=== PATIENT | female | born 1985 | race Caucasian/White ===

== ENCOUNTER 2023-03-30 16:03 | Inpatient (IN) | payer BC ==
[~2023-03-30] VITALS: Ht 170.2 cm; Wt 96.5 kg
[2023-03-30] MEDS ORDERED: LEVETIRACETAM (500MG) 1,000 MG in IV NS 0.9% 100 ML IV STA (16:07)
[2023-03-30] MEDS ORDERED: MIDAZOLAM HCL 5 MG/5ML VIAL ONE (16:27)
[2023-03-30] MEDS ORDERED: IV NS 0.9% 1,000 ML BAG IV ONE (16:30)
[2023-03-30] MEDS ORDERED: ONDANSETRON HCL/PF 4 MG/2 ML VIAL IVP ONE (16:30)
[2023-03-30] MEDS ORDERED: MIDAZOLAM HCL 2 MG/2ML VIAL IV ONE (16:30)
[2023-03-30] MEDS ORDERED: LORAZEPAM INJ 2 MG/ML VIAL IVP ONE (16:30)
[2023-03-30] MEDS ORDERED: LORAZEPAM INJ 2 MG/ML VIAL ONE (16:31)
[2023-03-30] MEDS ORDERED: ONDANSETRON HCL/PF 4 MG/2 ML VIAL ONE (16:36)
[2023-03-30 16:37] LABS: BASOPHILS # (AUTO) 0.1 K/uL (0.0-0.2); BASOPHILS % (AUTO) 0.6 % (0.0-2.0); EOSINOPHILS % (AUTO) 3.9 % (0.0-6.0); HEMATOCRIT 39 % (33-45); HEMOGLOBIN 12.9 g/dL (11.5-14.8); LYMPHOCYTES # (AUTO) 3.7 K/uL (0.8-4.8); LYMPHOCYTES % (AUTO) 34.5 % (20.0-44.0); MEAN CORPUSCULAR HGB CONC 33 g/dl (31.0-36.0); MEAN CORPUSCULAR VOLUME 95 fL (82-100); MONOCYTES # (AUTO) 0.8 K/uL (0.1-1.30); MONOCYTES % (AUTO) 7.5 % (2.0-12.0); NEUTROPHILS # (AUTO) 5.7 K/uL (1.8-8.9); NEUTROPHILS % (AUTO) 53.5 % (43.0-81.0); PLATELET COUNT (AUTO) 269 K/uL (150-450); RED BLOOD CELL COUNT(AUTO) 4.11 MIL/uL (4.0-5.2); WHITE BLOOD COUNT (AUTO) 10.6 K/uL (4.3-11.0)
[2023-03-30] MEDS ORDERED: CLON0.1T PO (16:42)
[2023-03-30] MEDS ORDERED: BUSP15TA3 PO (16:42)
[2023-03-30] MEDS ORDERED: LEVE500T20 PO (16:42)
[2023-03-30] MEDS ORDERED: METH750T3 PO (16:42)
[2023-03-30] MEDS ORDERED: TOPI50TA24 PO (16:42)
[2023-03-30] MEDS ORDERED: VALA500T40 PO (16:42)
[2023-03-30] MEDS ORDERED: BUPR8TAB4 SL (16:42)
[2023-03-30] MEDS ORDERED: TRAZ150T75 PO (16:42)
[2023-03-30] MEDS ORDERED: ONDA4TAB5 PO (16:42)
[2023-03-30] MEDS ORDERED: BUPR-54 PO (16:42)
[2023-03-30] MEDS ORDERED: PREG200C PO (16:42)
[2023-03-30] MEDS ORDERED: LITH300C2 PO (16:42)
[2023-03-30] MEDS ORDERED: HYDR50CA5 PO (16:42)
[2023-03-30] MEDS ORDERED: PRAZ1CAP5 PO (16:42)
[2023-03-30 16:45] LABS: CALCIUM, SERUM 9.7 mg/dL (8.5-10.1); CARBON DIOXIDE 30 mmol/L (21-32); CHLORIDE 106 mmol/L (98-107); CREATININE 1.1 mg/dL (0.6-1.3); GLUCOSE 79 mg/dL (74-106); POTASSIUM 3.8 mmol/L (3.5-5.1); SODIUM SERUM 141 mmol/L (136-145); UREA NITROGEN, BLOOD 13 mg/dL (7-18)
[2023-03-30 16:51] LABS: ALANINE AMINOTRANSFERASE 99 U/L (12-78); ALBUMIN 4.4 g/dL (3.4-5.0); ALKALINE PHOSPHATASE 247 U/L (46-116); ASPARTATE AMINOTRANSFERASE 21 U/L (15-37); BILIRUBIN,DIRECT 0.1 mg/dL (0.0-0.2); BILIRUBIN,TOTAL 0.3 mg/dL (0.2-1.0); TOTAL PROTEIN, SERUM 8.1 g/dL (6.4-8.2)
[2023-03-30 16:54] LABS: ALCOHOL, BLOOD < 3 mg/dL (0-0)
--- NOTE | 2023-03-30 16:54 | NUR ---
Active Seizures on and off, patient able to provide her own history. Speaking with MD, seizure precautions implemented. All safety precautions taken, patient on monitor.
--- NOTE | 2023-03-30 17:13 | NUR ---
URINE SAMPLE SENT TO LAB
--- NOTE | 2023-03-30 17:15 | NUR ---
COVID SWAB SENT TO LAB
[2023-03-30] MEDS ORDERED: CHLORDIAZEPOXIDE HCL 25 MG CAPSULE ONE (17:26)
[2023-03-30] MEDS ORDERED: CHLORDIAZEPOXIDE HCL 25 MG CAPSULE PO ONE (17:30)
--- NOTE | 2023-03-30 18:09 | NUR ---
Patient sleeping, easily aroused. AOx4, agrees with plan of care, states she wants to feel better.
--- NOTE | 2023-03-30 19:15 | NUR ---
Pt is noted in bed sleepingand responsive as report is received from the off going nurse, that , Pt was brought in from [facility] due to Seizure X2 Lasting 2mintes and also another Additional Sezures upon arrival and she has been medicated as ordered. Pt care continue as she is pendding admission while moniot closely.
[2023-03-30] MEDS ORDERED: CLONIDINE HCL 0.1 MG TABLET PO PRN (19:30)
[2023-03-30] MEDS ORDERED: LORAZEPAM INJ 2 MG/ML VIAL IV PRN (19:30)
[2023-03-30] MEDS ORDERED: METHOCARBAMOL (750MG) 750 MG TABLET PO PRN (19:30)
[2023-03-30] MEDS ORDERED: ACETAMINOPHEN 325 MG TABLET PO PRN (19:30)
[2023-03-30] MEDS ORDERED: ONDANSETRON HCL/PF 4 MG/2 ML VIAL IVP PRN (19:30)
--- NOTE | 2023-03-30 20:50 | NUR ---
Pt care continue as report is given to 3rd Floor ALYSON Borges as Pt is been Admitted to Tele under DR. Devi. Pt care continue.
[2023-03-30 21:00] VITALS: BP 80/48
--- NOTE | 2023-03-30 21:12 | NUR ---
Pt is noted off the unit , stable as she is been admitted to 3rd Floor Room 311-2. Pt care continue.
--- NOTE | 2023-03-30 21:30 | NUR ---
RESERVOIR ENGINEERBRUSH SANDER NOTE PATIENT ARRIVED ON UNIT, PT VERY LETHARGIC, AWAKENED TO TOUCH AND LIGHT PAIN STIMULI, ONCE AWAKE PATIENT ALERT/ORIENTED X 1-2, POOR HISTORIAN D/T LETHARGY. PATIENT STABLE ON 2 LPM OF O2 VIA NASAL CANNULA, NO S/S OF DISTRESS OR SOB NOTED, BREATHING EVEN AND UNLABORED. PATIENT STATES SHE LIVES IN REHAB, HAS NO FAMILY. PATIENT STATING SHE WANTS TO GO BACK TO REHAB. PATIENT STATES SHE DRINKS ALCOHOL AND USES OPIATES AND BENZOS, CAN'T REMEMBER LAST TIME SHE USED ANY. PATIENT REPORTS HX OF SEIZURES. PATIENT UNABLE TO STATE IF SHE'S VACCINATED FOR FLU OR COVID. IV ACCESS ON LAC #20G INTACT AND FLUSHING WELL. PATIENT PLACED ON TELE MONITOR, READING SINUS RHYTHM, HR: 74. ALL BELONGINGS DOCUMENT AND SHEET PLACED IN CHART. SAFETY AND SEIZURE PRECAUTIONS IN PLACE: BED LOCKED IN LOWEST POSITION, HOB ELEVATED, SIDE RAILS UP X 3, BED ALARM ON. WILL CONTINUE TO MONITOR PATIENT
[2023-03-30] MEDS: IV NS 0.9% 1,000 ML IV SCH (21:40)
--- NOTE | 2023-03-30 21:45 | NUR ---
CHARGE ACCOUNT AUTHORIZER NOTE DR. JASPREET GUSTAFSON PRESENT ON FLOOR ASSESSING PATIENT. PATIENT'S BP 80/48, HR: 60. NOTIFIED MD WITH ORDER FOR 1000 ML BOLUS AND MAINTENANCE AFTERWARD IVF @ 125 ML/HR. KEEP NPO FOR NOW SINCE PATIENT IS LETHARTIC AND ORDER SWALLOW EVAL
[2023-03-30] MEDS: ENOXAPARIN SODIUM 40 MG/0.4 ML DISP.SYRIN SQ SCH (21:47)
--- NOTE | 2023-03-30 21:50 | NUR ---
MANAGER WATER NOTE PATIENT HAVING WHAT APPEARS LIKE A SEIZURE LASTING ABOUT 20 SECONDS. VITAL SIGNS WNL. WILL CONTINUE TO MONITOR PATIENT
[2023-03-30] MEDS ORDERED: IV NS 0.9% 1,000 ML IV ONE (22:00)
[2023-03-31] VITALS: BP 109/54
--- NOTE | 2023-03-31 | NUR ---
MANAGER CARE NOTE PATIENT'S BP 89/54, PER DR. VOGEL GIVE ANOTHER 1000 ML BOLUS
[2023-03-31] MEDS ORDERED: IV NS 0.9% 1,000 ML IV ONE (00:30)
[2023-03-31] MEDS: IV NS 0.9% 1,000 ML IV SCH (04:27)
[2023-03-31 05:19] VITALS: BP 94/69
--- NOTE | 2023-03-31 05:58 | NUR ---
COMPLAINT ANALYST NOTE PATIENT OBSERVED HAVING SEIZURE LASTING ABOUT 1.5 MINUTES. VITAL SIGNS TAKEN AND WNL. WILL ADMINISTER ATIVAN
--- NOTE | 2023-03-31 06:12 | NUR ---
DEBONER NOTE PATIENT REMOVED IV AND NASAL CANNULA, PATIENT REFUSING LAB DRAW, IV REINSERTION AND NASAL CANNULA. EXPLAINED RISKS AND BENEFITS BUT PATIENT STATED "I DON'T CARE! DON'T TOUCH ME! I JUST WANT TO CALL MY MOM!"
--- NOTE | 2023-03-31 06:45 | NUR ---
CASHIERS BUSSERS FOOD RUNNERS NOTE PATIENT WITNESSED HAVING SEIZURE ON AND OFF FOR 5 MINUTES BY ALYSON TORRES
--- NOTE | 2023-03-31 07:01 | NUR ---
GELATIN DYNAMITE PACKING OPERATOR NOTE ATTEMPTED TO INSERT IV BUT UNSUCCESSFUL. PER DR. VOGEL GIVE ATIVAN IM. ATIVAN 2 MG IM GIVEN ORDERED. PATIENT REMOVED TELE MONITOR AND NASAL CANNULA, REFUSING TO HAVE IT PLACED BACK ON, YELLING "DON'T TOUCH ME, I WANT TO LEAVE!"
--- NOTE | 2023-03-31 07:45 | NUR ---
DEVELOPMENT ENGINEER CLOSING NOTE PATIENT AWAKE IN ROOM, ALERT/ORIENTED X 2. PATIENT REFUSING O2 VIA NASAL CANNULA, PATIENT REFUSING TELE MONITOR, PT REFUSING IV REINSERTION. PATIENT AGITATED AND RESTLESS, PT CONTINUOUSLY GETTING OUT OF BED AND THREATENING TO LEAVE, RISK OF FALL EXPLAINED TO PATIENT BUT PATIENT YELLED "I DON'T CARE! I'M LEAVING! WATCH ME!" CORRECTION OFFICER [place] [employer] NOTIFIED AND SPOKE TO PATIENT, EXPLAINED SHE'S UNSTABLE FOR DISCHARGE BUT PATIENT CONTINUES TO STATE SHE'S LEAVING, SECURITY CALLED. CALLED PATIENT'S MOTHER TEODORO WHO STATED PATIENT ACTS LIKE THIS WHEN HER MEDICATIONS GET CHANGED, MOTHER IS AT WORK AND UNABLE TO COME, STATED TO CALL DAWNA WHO WORKS AT REHAB PATIENT WAS AT, ENDORSED TO DAYSHIFT RN.
--- NOTE | 2023-03-31 07:50 | NUR ---
SUPPLY CHAIN DEVELOPMENT MANAGER OPENING NOTES RECEIVED PATIENT AWAKE IN ROOM, A/O X 2. VERBALIZING "I WANT TO GO BACK IN REHAB". PATIENT IS AGITATED AND RESTLESS, AND CONTINUOUSLY TRYING TO GO OUT OF THE ROOM. SHE SAID "I WANT TO LEAVE" AND "I DON'T CARE, DON'T TOUCH ME, I'M LEAVING, WATCH ME!' SECURITY WAS CALLED. PATIENT REFUSED TELE MONITORING. PATIENT REFUSED IV REINSERTION. PATIENT REFUSE O2 INHALATION. CHARGE NURSE WAS MADE AWARE AND TALKED TO THE PATIENT. WILL CONTINUE TO MONITOR.
[2023-03-31 08:13] VITALS: BP 112/84
[2023-03-31] MEDS: busPIRone 5 MG TABLET PO SCH ×3 (08:39→16:43)
[2023-03-31] MEDS: LITHIUM CARBONATE (300 MG CAP) 300 MG CAPSULE PO SCH ×4 (08:39→17:00)
[2023-03-31] MEDS: PREGABALIN 100 MG CAPSULE PO SCH ×3 (08:39→16:43)
[2023-03-31] MEDS: CHLORDIAZEPOXIDE HCL 25 MG CAPSULE PO SCH ×3 (08:39→16:44)
[2023-03-31] MEDS ORDERED: BUPROPION XL 150 MG TAB.ER.24 PO SCH (09:00)
[2023-03-31] MEDS ORDERED: BUPRENORPHINE HCL 8 MG TAB.SUBL SL SCH (09:00)
--- NOTE | 2023-03-31 09:05 | NUR ---
POLICE DISPATCHER NOTE RECEIVED A CALL FROM OLINDA OF [facility]. HE STATED THAT THE PATIENT WAS RESIDENT OF THEM AND THEY BROUGHT THE PATIENT TO THE HOSPITAL BECAUSE PATIENT HAS EPISODES OF SEIZURE. OLINDA ALSO INFORMED ME THAT WE CAN REACH THEM AT [phone] IF WE NEED ANY INFO ABOUT THE PATIENT.
--- NOTE | 2023-03-31 09:35 | NUR ---
RETAIL SALESWORKER NOTE. PATIENT STATED SHE WAS A HARD STICK AND PREFERS MIDLINE IV. MIDLINE IV INSERTION DONE BY DR. ROGERS.
[2023-03-31] MEDS ORDERED: IV NS 0.9% 1,000 ML IV PRN (09:39)
[2023-03-31] MEDS: LORAZEPAM INJ 2 MG/ML VIAL IM STA ×2 (09:58→10:17)
[2023-03-31] MEDS: LEVETIRACETAM (500MG) 1,000 MG in IV NS 0.9% 100 ML IV SCH ×2 (10:05→16:43)
[2023-03-31] MEDS: LORAZEPAM INJ 2 MG/ML VIAL IM/IV PRN (10:20)
--- NOTE | 2023-03-31 10:20 | NUR ---
SYSTEMS ADMIN NOTE ATIVAN 2MG WAS GIVEN PRN FOR RESTLESS AND AGITATION. WILL CONTINUE TO MONITOR
--- NOTE | 2023-03-31 14:02 | NUR ---
SW Consult: SW consult requested for patient for substance abuse. Pt brought to the hospital for seizures. Patient appeared to be alert and oriented x2 (self,place). Pt was unable to have a proper conversation and her speech was slow. Patient was unable to maintain eye contact and her eyes were closed. Patient stated she was brought to the hospital due to wanting to detox. She shared with this web content writer that she has been abusing drugs for years and stated she has been using opiates. Patient stated that she has a mother Trisha ([phone]) involved. She would want to dc to a rehab center. She denied suicidal or homicidal. She denied visual/auditory hallucinations. SW offered pt resources of substance abuse referrals. DC PLAN: [facility] [address] [facility], [phone] , per CM. Substance Abuse resources provided included: [facility] Substance Abuse Self-Helpline ([facility]) ; [facility] [address] [facility] [place] [id number] ; [facility] [address] [facility] [address] ; [facility] [address] [facility] [phone] ; [facility] [address] [facility] [phone] ; [facility] [address] [facility] [phone] ; [facility] [address] [facility] [phone] ; [facility] Substance Abuse Helpline([facility] ; [facility] ; [facility] [place]; [facility]; [facility] [place]; [facility] [place]; [facility] Malikajagr[facility]; [facility] Mas[facility]; [facility]. [facility] [place]; Alcoholics Anonymous -[facility]; [place] ; Marijuana Anonymous [facility]; Narcotics Anonymous [email or web address].na.[email or web address];
[2023-03-31 16:30] VITALS: BP 123/70
[2023-03-31] MEDS: ESCITALOPRAM OXALATE (10 MG) 10 MG TABLET PO SCH (17:26)
--- NOTE | 2023-03-31 19:31 | NUR ---
RN CLOSING NOTE PATIENT IS AWAKE IN BED, A/OX 1-2, WITH 1;1 SITTER. PATIENT HAS NO SIGNS OF ACUTE DISTRESS AT THIS TIME. PATIENT REFUSED O2 INHALATION, NO SOB, PATIENT IS BREATHING EVEN AND UNLABORED. PATIENT REFUSED TELE MONITORING. WITH JACQUELINE MIDLINE #18G-SL, INTACT, PATENT, FLUSHING WELL. PATIENT DENIES ANY PAIN AT THIS TIME. FREQUENT REORIENTATION DONE BECAUSE PATIENT KEEPS ON SAYING THAT SHE WANT TO BACK TO THE REHAB FACILITY. SAFETY MEASURES PUT IN PLACED. BED IN LOW AND LOCKED POSITION. CALL LIGHT WITHIN EASY REACH. WILL ENDORSE TO ARMOR RECONNAISSANCE VEHICLE CREWMAN NURSE FOR CONTINUITY OF CARE. Addendum: 03/31/23 at 1938 by NENO ROMERO RN ALL DUE MEDS GIVEN. ALL NURSING NEEDS ATTENDED.
--- NOTE | 2023-03-31 19:35 | NUR ---
RN OPENING NOTE RECEIVED PATIENT IN BED; AWAKE, ALERT AND ORIENTED X 1-2. REFUSED TO HAVE O2 INHALATION. SPO2 OF 96%. PATIENT REFUSED TO BE HOOKED ON TELE BOX. NO S/SX OF ANY PAIN OR DISCOMFORT NOTED AT THIS TIME. WITH 1:1 SITTER @ BEDSIDE. WITH RIGHT UPPER ARM MIDLINE 18g; PATENT, INTACT AND SALINE LOCKED. PATIENT VERBALIZED "I WANNA GO BACK TO REHAB." FALL, SAFETY AND SEIZURE PRECAUTIONS IMPLEMENTED: PADDED SIDE RAILS, CALL LIGHT AND TABLE WITHIN REACH, SIDE RAILS UP X 3, BED IN LOWEST LOCKED POSITION. WILL CONTINUE TO MONITOR THROUGHOUT SHIFT.
[2023-03-31] MEDS: ENOXAPARIN SODIUM 40 MG/0.4 ML DISP.SYRIN SQ SCH (20:27)
[2023-04-01] MEDS: LORAZEPAM INJ 2 MG/ML VIAL IM/IV PRN (05:07)
--- NOTE | 2023-04-01 05:07 | NUR ---
RN NOTE PATIENT HAD SEIZURE EPISODE. PRN ATIVAN 2MG IV GIVEN ORDERED. WILL CONTINUE TO MONITOR
--- NOTE | 2023-04-01 07:04 | NUR ---
RN CLOSING NOTE PATIENT IN BED; AWAKE, A/O X 1-2. REFUSED TO HAVE O2 INHALATION. IN NO ACUTE DISTRESS. NO S/SX OF ANY PAIN OR DISCOMFORT NOTED AT THIS TIME. WITH 1:1 SITTER @ BEDSIDE. WITH RIGHT UPPER ARM MIDLINE 18g; PATENT, INTACT AND SALINE LOCKED. FALL, SAFETY AND SEIZURE PRECAUTIONS MAINTAINED: PADDED SIDE RAILS, CALL LIGHT AND TABLE WITHIN REACH, SIDE RAILS UP X 3, BED IN LOWEST LOCKED POSITION. ENDORSED TO MORNING SHIFT FOR CONTINUITY OF CARE.
[2023-04-01 07:23] LABS: BASOPHILS # (AUTO) 0.1 K/uL (0.0-0.2); EOSINOPHILS % (AUTO) 5.3 % (0.0-6.0); HEMATOCRIT 36 % (33-45); HEMOGLOBIN 11.5 g/dL (11.5-14.8); LYMPHOCYTES # (AUTO) 2.6 K/uL (0.8-4.8); LYMPHOCYTES % (AUTO) 44.2 % (20.0-44.0); MEAN CORPUSCULAR HGB CONC 32 g/dl (31.0-36.0); MEAN CORPUSCULAR VOLUME 98 fL (82-100); MONOCYTES # (AUTO) 0.5 K/uL (0.1-1.30); MONOCYTES % (AUTO) 8.4 % (2.0-12.0); NEUTROPHILS # (AUTO) 2.4 K/uL (1.8-8.9); NEUTROPHILS % (AUTO) 41.1 % (43.0-81.0); PLATELET COUNT (AUTO) 255 K/uL (150-450); WHITE BLOOD COUNT (AUTO) 5.8 K/uL (4.3-11.0)
--- NOTE | 2023-04-01 07:23 | NUR ---
RN OPENING NOTE RECEIVED PATIENT IN BED, AWAKE, NO SIGNS OF ACUTE DISTRESS NOTED. ON ROOM AIR, TOLERATING WELL. DENIES ANY PAIN AT THIS TIME. PATIENT NOTED WITH AGITATION AND RESTLESSNESS. STATING THAT SHE WANTS TO GO HOME NOW. REORIENTED NEEDED. SITTER AT BEDSIDE. NOTED WITH IV ACCESS ON RIGHT UPPER ARM MIDLINE. INTACT AND PATENT. IV FLUIDS NOT IN PLACE CURRENTLY BECAUSE OF PATIENT REFUSAL. SAFETY MEASURE IN PLACE. BED IN LOW AND LOCKED POSITION. SIDE RAILS UP X3, CALL LIGHT PLACED WITHIN EASY REACH. SEIZURE PRECAUTION IN PLACE. WILL CONTINUE TO MONITOR PATIENT.
[2023-04-01 07:41] LABS: CALCIUM, SERUM 9.5 mg/dL (8.5-10.1); POTASSIUM 3.9 mmol/L (3.5-5.1)
[2023-04-01] MEDS: LITHIUM CARBONATE (300 MG CAP) 300 MG CAPSULE PO SCH ×2 (09:04→17:24)
[2023-04-01] MEDS: busPIRone 5 MG TABLET PO SCH ×3 (09:04→17:24)
[2023-04-01] MEDS: LEVETIRACETAM (500MG) 1,000 MG in IV NS 0.9% 100 ML IV SCH ×2 (09:05→16:17)
[2023-04-01] MEDS: CHLORDIAZEPOXIDE HCL 25 MG CAPSULE PO SCH ×3 (09:05→17:24)
[2023-04-01] MEDS: PREGABALIN 100 MG CAPSULE PO SCH ×3 (09:05→17:24)
[2023-04-01] MEDS: ESCITALOPRAM OXALATE (10 MG) 10 MG TABLET PO SCH (09:05)
--- NOTE | 2023-04-01 13:14 | NUR ---
RN NOTE TAISHA DEVI NP HERE TO SEE AND EXAMINE PATIENT. PATIENT NOTED WITH AGITATION AND RESTLESSNESS, STILL WANTING TO GO HOME. MOUNA SUMNER GAVE VERBAL ORDER TO ADMINISTER ATIVAN 2MG IVP X1, ORDER CARRIED OUT.
[2023-04-01] MEDS ORDERED: LORAZEPAM INJ 2 MG/ML VIAL IV ONE (13:30)
--- NOTE | 2023-04-01 17:00 | NUR ---
RN NOTE EEG PERFROMED AND COOPERATIVE AT THIS TIME.
--- NOTE | 2023-04-01 18:43 | NUR ---
RN CLOSING NOTE PATIENT IN BED, AWAKE, NO SIGNS OF ACUTE DISTRESS NOTED. REMAINS STABLE ON ROOM AIR, BREATHING EVEN AND UNLABORED. DENIED ANY PAIN THROUGHOUT THE SHIFT. PATIENT STILL NOTED WITH EPISODES OF AGITATION AND RESTLESSNESS. WANTING TO GO HOME. PT WAS ASLEEP MOST OF THE AFTERNOON AND EVENING. REORIENTED NEEDED. SITTER AT BEDSIDE. IV ACCESS ON RIGHT UPPER ARM MIDLINE. INTACT AND PATENT. IV FLUIDS NOT IN PLACE CURRENTLY BECAUSE OF PATIENT REFUSAL. PT CONTINUES TO PULL ON IV LINE. SAFETY MEASURE MAINTED. BED IN LOW AND LOCKED POSITION. SIDE RAILS UP X3, CALL LIGHT PLACED WITHIN EASY REACH. SEIZURE PRECAUTION IN PLACE. WILL ENDORSE TO NIGHTSHIFT FOR LIZBET.
[2023-04-01] MEDS: ENOXAPARIN SODIUM 40 MG/0.4 ML DISP.SYRIN SQ SCH (19:55)
[2023-04-01 20:00] VITALS: BP 99/58
--- NOTE | 2023-04-01 20:00 | NUR ---
RECEIVED PATIENT IN BED, ASLEEP, EASILY AROUSEABLE, STABLE ON ROOM AIR, NO COMPLAIN OF PAIN AT THIS TIME, DX SEIZURE, SITTER AT THE BEDSIDE. PER REPORT, CAN BE RESTLESS AND CONSTANTLY GETTING OUT OF BED. SEIZURE PRECAUTION, FALL PRECAUTION
--- NOTE | 2023-04-01 23:36 | NUR ---
ATTEMPTED TO RECONNECT TO IV, PATIENT REFUSED, KEPT PULLING ON MIDLINE.
[2023-04-02 04:57] VITALS: BP 101/62
[2023-04-02 05:44] LABS: EOSINOPHILS % (AUTO) 5.1 % (0.0-6.0); HEMATOCRIT 37 % (33-45); HEMOGLOBIN 12.3 g/dL (11.5-14.8); LYMPHOCYTES # (AUTO) 3.7 K/uL (0.8-4.8); LYMPHOCYTES % (AUTO) 49.9 % (20.0-44.0); MEAN CORPUSCULAR HGB CONC 33 g/dl (31.0-36.0); MEAN CORPUSCULAR VOLUME 97 fL (82-100); MONOCYTES # (AUTO) 1.1 K/uL (0.1-1.30); MONOCYTES % (AUTO) 15.5 % (2.0-12.0); NEUTROPHILS # (AUTO) 2.2 K/uL (1.8-8.9); NEUTROPHILS % (AUTO) 29.5 % (43.0-81.0); PLATELET COUNT (AUTO) 281 K/uL (150-450); RED BLOOD CELL COUNT(AUTO) 3.86 MIL/uL (4.0-5.2); WHITE BLOOD COUNT (AUTO) 7.4 K/uL (4.3-11.0)
[2023-04-02] MEDS: CHLORDIAZEPOXIDE HCL 25 MG CAPSULE PO SCH (05:51)
[2023-04-02 06:14] LABS: CALCIUM, SERUM 9.7 mg/dL (8.5-10.1); POTASSIUM 4.4 mmol/L (3.5-5.1)
--- NOTE | 2023-04-02 06:55 | NUR ---
DX SEIZURE, ALERT/ORIENTED X1, ROOM AIR, NO COMPLAIN OF PAIN, CONFUSED, RESTLESS, GETTING OUT OF BED OFTEN, CONTINENT OF BOWEL AND BLADDER. SKIN INTACT. REFUSING IVF, SITTER AT THE BEDSIDE, SEIZURE PRECAUTION, FALL PRECAUTION, ATIVAN PRN FOR SEIZURE ONLY, TAPER LIBRIUM, EEG PENDING RESULTS, PER PSYCH, NO PSYCH HOLD.
--- NOTE | 2023-04-02 07:51 | NUR ---
RN OPENING NOTE RECEIVED PATIENT IN BED, AO X 1, CONFUSED, SITTER AT BED SIDE. ABLE TO RESPONDS ALL PHYSICAL STIMULI. RESPIRATORY EVEN AND UNLABORED IN ROOM AIR, IN NO ACUTE RESPIRATORY DISTRESS OBSERVED. SKIN IS WARM TO TOUCH, KEEP CLEAN/DRY. KEPT ELEVATED HOB FOR ASPIRATION PRECAUTION AND ENSURE AIRWAY, ALSO LOWEST BED POSITIONED. BED ALARM IS ON AT ALL TIMES FOR SAFETY. CALL LIGHT WITHIN REACH, WILL CONTINUE TO MONITOR.
[2023-04-02] MEDS: LITHIUM CARBONATE (300 MG CAP) 300 MG CAPSULE PO SCH (08:39)
[2023-04-02] MEDS: busPIRone 5 MG TABLET PO SCH (08:39)
[2023-04-02] MEDS: PREGABALIN 100 MG CAPSULE PO SCH (08:39)
[2023-04-02] MEDS: ESCITALOPRAM OXALATE (10 MG) 10 MG TABLET PO SCH (08:39)
[2023-04-02] MEDS: LEVETIRACETAM (500MG) 1,000 MG in IV NS 0.9% 100 ML IV SCH (10:01)
--- NOTE | 2023-04-02 10:52 | NUR ---
PATIENT STARTING AGITATE; SCREAMING AND ATTEMPTING OUT OF THE BED REPEATEDLY, NEW ORDER ATIVAN 2MG VIA IV PUSH X 1. NOTED AND CARRY OUT.
[2023-04-02] MEDS ORDERED: LORAZEPAM INJ 2 MG/ML VIAL IV ONE (11:00)
[2023-04-02] MEDS ORDERED: LITH300C4 PO (11:42)
[2023-04-02] MEDS ORDERED: PREG100C PO (11:42)
[2023-04-02] MEDS ORDERED: METH750T3 PO (11:42)
[2023-04-02] MEDS ORDERED: LEVE1000 PO (11:42)
[2023-04-02] MEDS ORDERED: ESCI10TA PO (11:42)
[2023-04-02] MEDS ORDERED: BUSP5TAB3 PO (11:42)
--- NOTE | 2023-04-02 13:30 | NUR ---
2 vacuum repairer PICKED UP PATIENT TO THE [facility]. PATIENT IN STABLE CONDITION, SKIN IS WARM TO TOUCH, IN NO ACUTE DISTRESS OBSERVED. REMOVED IV LINE BORE PATIENT LEAVE.
[2023-04-02 15:57] LABS: EOSINOPHILS % (MANUAL) 3 % (0-4); LYMPHOCYTES % (MANUAL) 50 % (16-48); MONOCYTES % (MANUAL) 7 % (0-11.0); NEUTROPHILS % (MANUAL) 40 (42-76)
== END 2023-04-02 13:30 | DRG 100 ==
LOC: ER 16:09 → TELE 20:38
PROVIDERS: ADMIT Internal Medicine; ATTEND Nurse Practitioner Acute Care
PROC: 05HB33Z Insertion of Infusion Device into Right Basilic Vein, Percutaneous Approach (ICD-10-PCS; principal; 2023-03-31)
DX: G40.909 Epilepsy, unspecified, not intractable, without status epilepticus (principal); G92.8 Other toxic encephalopathy; F10.239 Alcohol dependence with withdrawal, unspecified; I95.89 Other hypotension; F11.90 Opioid use, unspecified, uncomplicated; F10.229 Alcohol dependence with intoxication, unspecified; Y90.0 Blood alcohol level of less than 20 mg/100 ml; Z88.5 Allergy status to narcotic agent; Z88.2 Allergy status to sulfonamides; Z88.8 Allergy status to other drugs, medicaments and biological substances; Z79.899 Other long term (current) drug therapy; Z20.822 Contact with and (suspected) exposure to COVID-19; E66.9 Obesity, unspecified; Z68.33 Body mass index [BMI] 33.0-33.9, adult; F31.9 Bipolar disorder, unspecified; R74.01 Elevation of levels of liver transaminase levels; F29 Unspecified psychosis not due to a substance or known physiological condition
CPT/HCPCS: 36415; 70450-TC; 71045-TC; 80048-TC; 80076-TC; 84703-TC; 85025-TC; 85730-TC; 87081-TC; 92526; 92611-TC; 95819-TC; A4223; C9803; G0378; G0480; J1650; J1953; J2060; J2250; J2405; J7030

== ENCOUNTER 2024-10-22 13:47 | Inpatient (IN) | payer BC ==
[~2024-10-22] VITALS: Ht 190.5 cm; Wt 77.1 kg
[~2024-10-22 13:47] MED LIST: BUPR-54 PO; BUPR8TAB4 SL; BUSP15TA3 PO; CLON0.1T PO; HYDR50CA5 PO; LEVE500T20 PO; LITH300C2 PO; METH750T3 PO; ONDA4TAB5 PO; PRAZ1CAP5 PO; PREG200C PO; TOPI50TA24 PO; TRAZ150T75 PO; VALA500T40 PO
[2024-10-22] MEDS: LEVETIRACETAM (500MG) 1,000 MG in IV NS 0.9% 90 ML IV SCH ×2 (14:00→20:31)
[2024-10-22] MEDS: IV NS 0.9% 1,000 ML BAG IV ONE (14:00)
[2024-10-22 14:58] LABS: BASOPHILS % (AUTO) 0.9 % (0.0-2.0); EOSINOPHILS # (AUTO) 0.1 K/uL (0.0-0.7); EOSINOPHILS % (AUTO) 2.2 % (0.0-6.0); HEMATOCRIT 32 % (33-45); HEMOGLOBIN 10.7 g/dL (11.5-14.8); LYMPHOCYTES # (AUTO) 2.6 K/uL (0.8-4.8); LYMPHOCYTES % (AUTO) 52.9 % (20.0-44.0); MEAN CORPUSCULAR HEMOGLOBIN 33 PG (26.0-33.0); MEAN CORPUSCULAR HGB CONC 34 g/dl (31.0-36.0); MEAN CORPUSCULAR VOLUME 98 fL (82-100); MONOCYTES # (AUTO) 0.2 K/uL (0.1-1.30); MONOCYTES % (AUTO) 4.9 % (2.0-12.0); NEUTROPHILS # (AUTO) 1.9 K/uL (1.8-8.9); NEUTROPHILS % (AUTO) 39.1 % (43.0-81.0); PLATELET COUNT (AUTO) 253 K/uL (150-450); RED BLOOD CELL COUNT(AUTO) 3.23 MIL/uL (4.0-5.2); RED CELL DISTRIBUTION WIDTH 14.9 % (11.5-15.0); WHITE BLOOD COUNT (AUTO) 4.8 K/uL (4.3-11.0)
[2024-10-22 15:28] LABS: CALCIUM, SERUM 8.5 mg/dL (8.5-10.1); CARBON DIOXIDE 22 mmol/L (21-32); CHLORIDE 109 mmol/L (98-107); GLUCOSE 113 mg/dL (74-106); POTASSIUM 4.6 mmol/L (3.5-5.1); SODIUM SERUM 140 mmol/L (136-145); UREA NITROGEN, BLOOD 14 mg/dL (7-18)
[2024-10-22 15:30] LABS: ALCOHOL, BLOOD < 3 mg/dL (0-10)
[2024-10-22] MEDS: LORAZEPAM INJ 2 MG/ML VIAL IV ONE (15:35)
[2024-10-22] MEDS ORDERED: LORAZEPAM INJ 2 MG/ML VIAL ONE (15:38)
[2024-10-22 16:37] LABS: BARBITURATE, URINE NEGATIVE (NEGATIVE); BENZODIAZEPINE, URINE POSITIVE (NEGATIVE); CANNABINOID, URINE NEGATIVE (NEGATIVE); COCCAINE, URINE NEGATIVE (NEGATIVE); OPIATE, URINE NEGATIVE (NEGATIVE); PHENCYCLIDINE SCREEN,URINE NEGATIVE (NEGATIVE)
[2024-10-22 16:46] LABS: AMPHETAMINE, URINE NEGATIVE (NEGATIVE)
[2024-10-22] MEDS: LORAZEPAM INJ 2 MG/ML VIAL IV STA (18:10)
[2024-10-22 18:17] VITALS: BP 135/85; TEMP 98.5; O2SAT 99
[2024-10-22] MEDS ORDERED: ONDANSETRON HCL/PF 4 MG/2 ML VIAL IVP PRN (19:00)
[2024-10-22 20:00] VITALS: BP 128/85; TEMP 98.1; O2SAT 98
[2024-10-22] MEDS: IV NS 0.9% 1,000 ML IV PRN (20:08)
[2024-10-22] MEDS: LORAZEPAM INJ 2 MG/ML VIAL IV PRN (20:47)
[2024-10-22] MEDS: ENOXAPARIN SODIUM 40 MG/0.4 ML DISP.SYRIN SQ SCH (21:28)
[2024-10-22] MEDS: CEFEPIME 2 GM in IV D5W 100 ML IV SCH (21:30)
[2024-10-22] MEDS ORDERED: CEFEPIME 1 GM VIAL ONE (21:55)
[2024-10-23] VITALS: BP 106/85; TEMP 97.7; O2SAT 98
[2024-10-23 04:00] VITALS: BP 142/78; TEMP 98.2; O2SAT 98
[2024-10-23] MEDS ORDERED: CEFEPIME 1 GM VIAL ONE (05:29)
[2024-10-23 09:00] VITALS: BP 149/96; TEMP 98.8; O2SAT 100
[2024-10-23] MEDS ORDERED: ONDA4TAB5 PO (09:23)
[2024-10-23] MEDS ORDERED: ATOM100C PO (09:23)
[2024-10-23] MEDS ORDERED: GABA600T12 PO (09:23)
[2024-10-23] MEDS ORDERED: QUET50TA PO (09:23)
[2024-10-23] MEDS ORDERED: TOPI100T PO (09:23)
[2024-10-23] MEDS ORDERED: MELA5TAB PO (09:23)
[2024-10-23] MEDS ORDERED: DESV100T PO (09:23)
[2024-10-23] MEDS ORDERED: MAGN100T PO (09:23)
[2024-10-23] MEDS ORDERED: PRAZ5CAP2 PO (09:23)
[2024-10-23] MEDS: LEVETIRACETAM (500MG) 1,000 MG in PREMIX 90 EA IV ONE (11:01)
[2024-10-23 12:00] VITALS: BP 146/96; TEMP 98.4; O2SAT 100
[2024-10-23 12:19] LABS: BASOPHILS % (AUTO) 0.9 % (0.0-2.0); EOSINOPHILS # (AUTO) 0.1 K/uL (0.0-0.7); EOSINOPHILS % (AUTO) 2.5 % (0.0-6.0); HEMATOCRIT 30 % (33-45); HEMOGLOBIN 10.6 g/dL (11.5-14.8); LYMPHOCYTES # (AUTO) 2.5 K/uL (0.8-4.8); LYMPHOCYTES % (AUTO) 52.9 % (20.0-44.0); MEAN CORPUSCULAR HEMOGLOBIN 34 PG (26.0-33.0); MEAN CORPUSCULAR HGB CONC 35 g/dl (31.0-36.0); MEAN CORPUSCULAR VOLUME 97 fL (82-100); MONOCYTES # (AUTO) 0.3 K/uL (0.1-1.30); MONOCYTES % (AUTO) 7.2 % (2.0-12.0); NEUTROPHILS # (AUTO) 1.7 K/uL (1.8-8.9); NEUTROPHILS % (AUTO) 36.5 % (43.0-81.0); PLATELET COUNT (AUTO) 258 K/uL (150-450); RED BLOOD CELL COUNT(AUTO) 3.15 MIL/uL (4.0-5.2); RED CELL DISTRIBUTION WIDTH 14.7 % (11.5-15.0); WHITE BLOOD COUNT (AUTO) 4.8 K/uL (4.3-11.0)
[2024-10-23 12:28] LABS: CALCIUM, SERUM 8.5 mg/dL (8.5-10.1); CREATININE 0.6 mg/dL (0.6-1.3); MAGNESIUM 1.9 mg/dL (1.8-2.4); PHOSPHORUS 2.5 mg/dL (2.5-4.9); POTASSIUM 3.6 mmol/L (3.5-5.1)
[2024-10-23] MEDS: LACOSAMIDE 200 MG in IV NS 0.9% 100 ML IV ONE (14:25)
[2024-10-23 16:00] VITALS: BP 146/98; TEMP 98.1; O2SAT 100
[2024-10-23 20:00] VITALS: BP 135/100; TEMP 97.9; O2SAT 100
[2024-10-23] MEDS: LACOSAMIDE 100 MG in IV NS 0.9% 50 ML IV SCH (21:06)
[2024-10-23] MEDS: LEVETIRACETAM (500MG) 1,500 MG in IV NS 0.9% 85 ML IV SCH (21:11)
[2024-10-24] VITALS: BP 130/80; TEMP 98; O2SAT 100
[2024-10-24 04:00] VITALS: BP 126/87; TEMP 98; O2SAT 100
[2024-10-24 08:00] VITALS: BP 122/79; TEMP 98.4; O2SAT 100
[2024-10-24] MEDS ORDERED: AMOX1TAB15 PO (09:19)
[2024-10-24] MEDS ORDERED: ATOMOXETINE HCL 100 MG PO SCH (09:30)
[2024-10-24] MEDS ORDERED: Medication Not On Formulary EA (Desvenlafaxine Succinate (Pristiq) 100 MG) PO SCH (09:30)
[2024-10-24] MEDS ORDERED: QUETIAPINE FUMARATE 25 MG TABLET PO PRN (09:30)
[2024-10-24] MEDS ORDERED: HYDROCODONE/APAP 5/325MG TABLET PO PRN (09:30)
[2024-10-24] MEDS: GABAPENTIN 400 MG CAPSULE PO SCH (09:59)
[2024-10-24] MEDS: BUPRENORPHINE HCL 8 MG TAB.SUBL SL SCH (10:00)
[2024-10-24] MEDS: TOPIRAMATE 100 MG TABLET PO SCH (10:00)
[2024-10-24] MEDS: ACETAMINOPHEN 325 MG TABLET PO PRN (10:01)
[2024-10-24 10:49] LABS: BASOPHILS % (AUTO) 0.8 % (0.0-2.0); EOSINOPHILS % (AUTO) 0.6 % (0.0-6.0); HEMATOCRIT 33 % (33-45); LYMPHOCYTES # (AUTO) 1.8 K/uL (0.8-4.8); LYMPHOCYTES % (AUTO) 30.3 % (20.0-44.0); MEAN CORPUSCULAR HEMOGLOBIN 34 PG (26.0-33.0); MEAN CORPUSCULAR HGB CONC 36 g/dl (31.0-36.0); MEAN CORPUSCULAR VOLUME 94 fL (82-100); MONOCYTES # (AUTO) 0.2 K/uL (0.1-1.30); NEUTROPHILS # (AUTO) 3.8 K/uL (1.8-8.9); NEUTROPHILS % (AUTO) 64.3 % (43.0-81.0); PLATELET COUNT (AUTO) 289 K/uL (150-450); RED BLOOD CELL COUNT(AUTO) 3.53 MIL/uL (4.0-5.2); RED CELL DISTRIBUTION WIDTH 14.7 % (11.5-15.0); WHITE BLOOD COUNT (AUTO) 5.9 K/uL (4.3-11.0)
[2024-10-24 11:04] LABS: CALCIUM, SERUM 9.2 mg/dL (8.5-10.1); CREATININE 0.6 mg/dL (0.6-1.3); PHOSPHORUS 2.5 mg/dL (2.5-4.9); POTASSIUM 3.5 mmol/L (3.5-5.1)
[2024-10-24 12:00] VITALS: BP 134/94; TEMP 98.1; O2SAT 100
[2024-10-24] MEDS ORDERED: Medication Not On Formulary EA (Magnesium Glycinate (Mag Glycinate) 200 MG) PO SCH (22:00)
[2024-10-24] MEDS ORDERED: PRAZOSIN HCL 1 MG CAPSULE PO SCH (22:00)
== END 2024-10-24 15:20 | disposition home or self-care (01) | DRG 100 ==
LOC: ER 13:50 → TELE-TD 17:23 → ICUOV 10-23 21:38 → MEDSG1 10-24 12:20
PROVIDERS: ADMIT Nurse Practitioner Acute Care; ATTEND Nurse Practitioner Acute Care
DX: G40.909 Epilepsy, unspecified, not intractable, without status epilepticus (principal); J69.0 Pneumonitis due to inhalation of food and vomit; F11.93 Opioid use, unspecified with withdrawal; F10.239 Alcohol dependence with withdrawal, unspecified; R74.01 Elevation of levels of liver transaminase levels; Z88.2 Allergy status to sulfonamides; E66.9 Obesity, unspecified; Z68.21 Body mass index [BMI] 21.0-21.9, adult; F99 Mental disorder, not otherwise specified; Y90.0 Blood alcohol level of less than 20 mg/100 ml
CPT/HCPCS: 36415; 70450-TC; 71045-TC; 80048-TC; 82962-TC; 83605-TC; 83735-TC; 84100-TC; 84702-TC; 85025-TC; 95819-TC; A4216; A4223; G0378; G0480; J0692; J1650; J1953; J2060; J3490; J7030; J7050; J7060